=== PATIENT | female | born 1995 | race Hispanic/Latino ===

== ENCOUNTER 2016-07-03 04:22 | Emergency (ER) | payer OTHER ==
[~2016-07-03] VITALS: Ht 152.4 cm; Wt 53.2 kg
[~2016-07-03 04:22] MED LIST: ALBUTEROL SULF8.5 GM IH; BENADRYL25 MG PO; CIPRO500 MG PO; JUNEL1 EAC1 PO; MEDROL DOSEPAK4 MG PO; NAPROSYN500 MG PO; NASONEX17 GM BOTH NARES; PATANOL OP100 DROP/5 BOTH EYES; PREDNISONE20 MG PO; VENTOLIN HFA18 GM IH
[2016-07-03] MEDS ORDERED: JUNEL1 EACH PO (05:16)
[2016-07-03] MEDS ORDERED: ERGOCALCIF50000 UNIT PO (05:18)
[2016-07-03 05:28] LABS: INFLUENZA A VIRAL ANTIGEN POSITIVE; INFLUENZA B VIRAL ANTIGEN NEGATIVE
[2016-07-03 05:44] LABS: CHLORIDE 107 mEq/L (99-109)
[2016-07-03 05:45] LABS: EOSINOPHIL (%) 6.6 % (0-5); EOSINOPHIL COUNT 0.5 K/uL (0-0.3); HEMATOCRIT 36.2 % (36.0-46.0); IMMATURE GRANULOCYTE (%) 0.8 % (0.0-0.7); IMMATURE GRANULOCYTE COUNT 0.6 K/uL; LYMPHOCYTE COUNT 1.3 K/uL (1.0-2.8); MCH 31.9 PG (29.0-34.0); MEAN PLAT.VOLUME 10.2 uM^3 (9.5-12.4); MONOCYTE (%) 7.9 % (3-12); MONOCYTE COUNT 0.6 K/uL (0-0.8); NEUTROPHIL (%) 67.6 % (45-76); NEUTROPHIL COUNT 5.2 K/uL (1.8-6.4); PLATELET COUNT 294 K/uL (156-360); POTASSIUM 3.1 mEq/L (3.7-5.4); RBC DIS.WIDTH-CV 12.3 % (11.8-14.6); RBC DIS.WIDTH-SD 37.7 % (39-53); SODIUM 137 mEq/L (136-147); WHITE BLOOD COUNT 7.7 K/uL (4.1-10.2)
[2016-07-03 05:47] LABS: GLUCOSE 109 mg/dL (70-99); MCV 86.2 FL (83-99)
[2016-07-03 05:48] LABS: ANION GAP 8 MEQ/L (2-14)
[2016-07-03 05:49] LABS: TOTAL BILIRUBIN 0.2 mg/dL (0.0-1.0)
[2016-07-03 05:50] LABS: ALKALINE PHOSPHATASE 52 IU/L (3-129); GFR ESTIMATE (CALCULATED) > 59 mL/min/
[2016-07-03 05:52] LABS: UREA NITROGEN (BUN) 10 mg/dL (9-23)
[2016-07-03] MEDS ORDERED: ROBITUSSIN AC,T10 ML PO (05:52)
[2016-07-03] MEDS ORDERED: PROAIR HFA8.5 GM IH (05:52)
[2016-07-03] MEDS ORDERED: PREDNISONE50 MG PO (05:52)
[2016-07-03 05:59] LABS: QUANTITATIVE HCG < 4.0 MIU/ML
[2016-07-03 06:20] VITALS: BP 110/73
== END 2016-07-03 06:28 | disposition home or self-care (01) ==
LOC: EME 04:22
PROVIDERS: Emergency Medicine
DX: J10.1 Influenza due to other identified influenza virus with other respiratory manifestations (principal); E87.6 Hypokalemia; J45.909 Unspecified asthma, uncomplicated
CPT/HCPCS: 71020; 80053; 84484; 84702; 85025; 87502; 93005; 94640; 94664; 99281; 99285; J7030; J7512

== ENCOUNTER 2017-11-11 14:33 | Emergency (ER) | payer OTHER ==
[~2017-11-11] VITALS: Ht 149.9 cm; Wt 56.1 kg
[~2017-11-11 14:33] MED LIST changes: +ERGOCALCIF50000 UNIT PO; +JUNEL1 EACH PO; +PREDNISONE50 MG PO; +PROAIR HFA8.5 GM IH; +ROBITUSSIN AC,T10 ML PO
[2017-11-11 15:22] LABS: HEMATOCRIT 44.2 % (36.0-46.0); HEMOGLOBIN 15.5 G/DL (11.9-15.5); MCH 32.4 PG (29.0-34.0); MCHC 35.1 G/DL (30.0-36.0); MCV 92.5 FL (83-99); PLATELET COUNT 317 K/uL (156-360); RBC DIS.WIDTH-SD 40.9 % (39-53); RED BLOOD COUNT 4.78 M/uL (3.80-5.20); WHITE BLOOD COUNT 7.7 K/uL (4.1-10.2)
[2017-11-11 15:29] LABS: ALBUMIN 4.5 g/dL (3.2-4.8); CHLORIDE 108 mEq/L (99-109); POTASSIUM 4.6 mEq/L (3.7-5.4); SODIUM 140 mEq/L (136-147)
[2017-11-11 15:32] LABS: GLUCOSE 94 mg/dL (70-99); TOTAL PROTEIN 7.9 g/dL (6.4-8.3)
[2017-11-11 15:34] LABS: TOTAL BILIRUBIN 0.6 mg/dL (0.0-1.0)
[2017-11-11 15:35] LABS: ALKALINE PHOSPHATASE 67 IU/L (3-129); CREATININE 0.7 mg/dL (0.6-1.3)
[2017-11-11 15:36] LABS: UREA NITROGEN (BUN) 13 mg/dL (9-23)
[2017-11-11 15:37] LABS: AST (GOT) 15 IU/L (2-34)
[2017-11-11 15:38] LABS: ALT (GPT) 9 IU/L (3-49)
[2017-11-11 15:45] LABS: GFR ESTIMATE (CALCULATED) > 59 mL/min/
[2017-11-11 15:46] LABS: QUANTITATIVE HCG < 4.0 MIU/ML
[2017-11-11 15:53] LABS: APPEARANCE CLEAR ((CLEAR)); BILIRUBIN NEGATIVE; BLOOD NEGATIVE; COLOR YELLOW ((YELLOW)); GLUCOSE (STRIP) NEGATIVE; KETONES NEGATIVE; LEUKOCYTES NEGATIVE; NITRITE NEGATIVE; PROTEIN (STRIP) 30; SPECIFIC GRAVITY 1.024 (1.000-1.030); UCUL ADDED? NO; UROBILINOGEN 0.2 MG/DL (0.2-1.0)
[2017-11-11] MEDS ORDERED: ZOFRAN4 MG PO (21:32)
[2017-11-11 21:46] VITALS: BP 112/62
== END 2017-11-11 21:47 | disposition home or self-care (01) ==
LOC: EME 14:33
DX: K59.00 Constipation, unspecified (principal); J45.909 Unspecified asthma, uncomplicated; Z91.012 Allergy to eggs
CPT/HCPCS: 74177; 76856; 80053; 81003; 84702; 85027; 99281; 99284; J7030